=== PATIENT | female | born 1945 | race Caucasian/White ===

== ENCOUNTER → 2018-10-05 | Outpatient (CLI) | payer OTHER ==
[~2018-10-05] VITALS: Ht 167.6 cm; Wt 88.9 kg
[~2018-10-05] MED LIST: CENTRUM SILVER1 EAC4 PO; COREG25 MG PO; COZAAR 25 MG TA25 M1 PO; ELIQUIS5 MG PO; GLUCOTROL5 MG PO; LASIX 40 MG TAB40 M2 PO; METFORMIN HCL500 MG PO; TRICOR145 MG PO; ZOCOR40 MG PO
[2018-10-05 10:43] VITALS: BP 145/67
[2018-10-05 11:06] LABS: ABSOLUTE NEUTROPHILS 5.5 thou/uL (1.4-8.2); BASOPHILS 1.1 % (0.0-2.0); EOSINOPHILS 1.5 % (0.0-3.0); HEMATOCRIT 34.3 % (37.0-47.0); HEMOGLOBIN 11.9 gm/dL (12.0-15.0); MCH 32.2 pg (26.0-34.0); MCHC 34.7 g/dL (28.0-37.0); MCV 92.9 fL (80.0-100.0); MONOCYTES 6.6 % (1.0-8.0); PLATELET COUNT 210 thou/uL (150-400); POLYS 61.8 % (36.0-66.0); RBC 3.69 mil/uL (4.20-5.00); RDW 13.3 % (10.5-14.5)
[2018-10-05 11:17] LABS: CALCIUM 9.7 mg/dL (8.5-10.1); CREATININE 1.3 mg/dL (0.6-1.0); POTASSIUM 3.9 mmol/L (3.5-5.1)
[2018-10-05 11:18] LABS: INR 1.1
[2018-10-05 11:23] LABS: ALBUMIN 3.3 g/dL (3.4-5.0); TOTAL BILIRUBIN 0.3 mg/dL (<0.1-1.0)
--- NOTE | 2018-10-08 08:52 | P ---
[facility] [place] [address] PROCEDURE REPORT Name: ANUELRUTH ANN Room #: REG [facility].#: [id number] Admission: 10/05/18 Attend Phys: Raul Vieyra MD Discharge: Date of : 49 Report #: [id number] THIS REPORT FOR: //name// CC: Zachary Vieyra DATE OF SERVICE: 10/05/2018 PROCEDURE: Implantable cardioverter defibrillator generator exchange. PREOPERATIVE DIAGNOSIS: Implantable cardioverter defibrillator generator at elective replacement interval. POSTOPERATIVE DIAGNOSIS: Implantable cardioverter defibrillator generator at elective replacement interval. HISTORY: The patient is a 72-year-old female, with a history of ICD implantation, whose device is at the elective replacement interval and she is here for generator exchange. ANESTHESIA: The patient underwent MAC anesthesia with no anesthesia related complications. DESCRIPTION OF PROCEDURE: The patient was brought to the EP laboratory in a fasting and unsedated state and prepped and draped in a sterile fashion. She received IV vancomycin for antibiotic prophylaxis. I then injected lidocaine at the prior incision site. Incision was made, the chronic pocket was opened, the old device was disconnected and the existing leads were connected to the new generator and tested and found to be functioning normally. Tyrx antibiotic pouch was placed in the pocket. The pocket was then closed in 3 layers using 2-0 for the deep layer, 3-0 for the mid layer, 4-0 for the subcuticular layer. Surgical glue was placed to the outer skin layer. The patient awoke neurologically and hemodynamically intact. No complications and no significant bleeding. The explanted device was a Medtronic model number [id number], serial number [id number], implanted back on 11/30/2009. The newly implanted device was Medtronic model number [id number], serial number [id number]. The atrial lead was a Medtronic model number 5076, serial number [id number] implanted in November 2009 with a P-wave of 2.9 millivolts, pacing impedance of 448 ohms and a pacing threshold of 0.5 volts at 0.5 milliseconds. The RV lead was a 6947, serial number [id number] implanted in November 2009 with an R-wave of 7.6 millivolts, pacing impedance of 638 ohms and a pacing threshold of 1.25 volts at 0.5 milliseconds. The device was programmed to the DDDR 6130 mode. The VF zone was set at greater than 320 milliseconds with ATP while charging followed by [address] [id number] [id number] Admission: 10/05/18 Attend Phys: Raul Vieyra MD Discharge: Date of : 49 Report #: [id number] output shocks. CONCLUSIONS: 1. Successful implantable cardioverter defibrillator generator exchange. 2. Satisfactory atrial and ventricular pacing and sensing thresholds. 3. Implantation of a Tyrx antibiotic pouch. <ELECTRONICALLY SIGNED> By: Raul Vieyra MD 10/08/18 [id number] Raul Vieyra MD /nt
== END | disposition home or self-care (01) ==
LOC: CATH 08:57
PROVIDERS: Internal Medicine Cardiovascular Disease
DX: Z45.02 Encounter for adjustment and management of automatic implantable cardiac defibrillator (principal); I42.9 Cardiomyopathy, unspecified; I49.9 Cardiac arrhythmia, unspecified; I10 Essential (primary) hypertension; I25.10 Atherosclerotic heart disease of native coronary artery without angina pectoris; E11.9 Type 2 diabetes mellitus without complications; E78.5 Hyperlipidemia, unspecified; I48.91 Unspecified atrial fibrillation; F17.210 Nicotine dependence, cigarettes, uncomplicated; E66.09 Other obesity due to excess calories; Z86.73 Personal history of transient ischemic attack (TIA), and cerebral infarction without residual deficits; Z79.01 Long term (current) use of anticoagulants; Z79.899 Other long term (current) drug therapy; Z90.49 Acquired absence of other specified parts of digestive tract; Z91.041 Radiographic dye allergy status
CPT/HCPCS: 70005

== ENCOUNTER → 2021-04-20 | Outpatient (CLI) | payer OTHER | LOC: SJCVC 14:05 | PROVIDERS: ATTEND Internal Medicine | DX: R94.31 Abnormal electrocardiogram [ECG] [EKG] (principal); I42.8 Other cardiomyopathies; I10 Essential (primary) hypertension; E78.5 Hyperlipidemia, unspecified; I48.0 Paroxysmal atrial fibrillation; E11.9 Type 2 diabetes mellitus without complications; F17.200 Nicotine dependence, unspecified, uncomplicated; Z88.8 Allergy status to other drugs, medicaments and biological substances; Z95.810 Presence of automatic (implantable) cardiac defibrillator; Z79.84 Long term (current) use of oral hypoglycemic drugs; Z79.899 Other long term (current) drug therapy; Z86.73 Personal history of transient ischemic attack (TIA), and cerebral infarction without residual deficits; Z95.0 Presence of cardiac pacemaker ==